=== PATIENT | male | born 1990 | race African-American/Black ===

== ENCOUNTER 2017-01-29 14:19 | Emergency (ER) | payer SELFPAY ==
--- NOTE | 2017-01-29 14:36 | ED Physician Documentation ---
Abdominal Pain - HISTORIAN Historian: patient - HPI Chief Complaint: Abdominal Pain Additonal Information: c/o lt upper abd - flank pain cough non prod onset 3d ago Onset: days ago (3) Duration: waxing, waning, other (rates 01/13---does not appear in sig pain) Timing: still present (bowels kidneys normal daily) Context: denies: out of country travel, bad food Severity: denies: moderate Quality: pain, other (cough) Associated Symptoms: denies: fever, chills, nausea, vomiting, loss of appetite Exacerbated by: movements Relieved by: nothing - ROS CONST: no problems GI/: none CVS/RESP: none, cough MS/SKIN/LYMPH: none NEURO/PSYCH: none - SOCIAL HX Smoking History: cigarettes Alcohol Use: none Drug Use: other - FAMILY HX Family History: no significant history - PAST HX Past History: none Ischemic Bowel Risk Factors: none Other History: none Surgeries/Procedures: none Home Medications: Ambulatory Orders Medication Instructions Recorded NK [NK] 12/19/14 Allergies/Adverse Reactions: Allergies Allergy/AdvReac Type Severity Reaction Status Date / Time No Known Allergies Allergy Verified 01/29/17 14:31 - VITAL SIGNS Vital Signs: Vital Signs Temp Pulse Resp BP Pulse Ox 98.6 F 80 16 128/58 98 01/29/17 14:20 01/29/17 14:20 01/29/17 14:20 01/29/17 14:20 01/29/17 14:20 - REVIEWED ASSESSMENTS Nursing Assessment Reviewed: Yes Vitals Reviewed: Yes ED Results Lab/Radiology - Lab Results Lab Results: Lab Results 01/29/17 01/29/17 14:55 14:55 WBC 5.80 K/ul K/ul (4.00-12.00) RBC 5.25 M/ul H M/ul (3.90-5.20) Hgb 15.6 g/dL g/dL (12.0-18.0) Hct 44.5 % % (37.0-53.0) MCV 84.9 fl fl (80.0-100.0) MCH 29.7 pg pg (28.0-34.0) MCHC 35.0 g/dL g/dL (30.0-36.0) RDW 12.9 % % (11.3-14.3) Plt Count 245 K/mm3 K/mm3 (130-400) Neut % (Auto) 52.6 % % (39.0-79.0) Lymph % (Auto) 34.1 % % (16.0-50.0) [place] % (Auto) 4.7 % % (0.0-11.0) Eos % (Auto) 5.3 % % (0.0-6.8) Baso % (Auto) 1.0 (0.0-1.5) Neut # (Auto) 3.1 # k/uL # k/uL (1.4-7.7) Lymph # (Auto) 2.0 # k/uL # k/uL (0.6-4.0) [place] # (Auto) 0.3 # k/uL # k/uL (0.0-0.9) Eos # (Auto) 0.3 # k/uL # k/uL (0.0-0.6) Baso # (Auto) 0.1 # k/uL # k/uL (0.0-0.5) Reactive Lymphs % 2.3 % % (0.0-5.0) Reactive Lymphs # 0.1 # k/uL # k/uL (0.0-0.8) Sodium 136 mmol/L L mmol/L (137-145) Potassium 3.9 mmol/L mmol/L (3.5-5.1) Chloride 101 mmol/L mmol/L (98-107) Carbon Dioxide 28 mmol/L mmol/L (22-30) BUN 11 mg/dL mg/dL (9-20) Creatinine 0.80 mg/dL mg/dL (0.66-1.25) Estimated Creat Clear 166 Est GFR ( Amer) > 60 (60 - ) Est GFR (Non-Af Amer) > 60 (60 - ) Glucose 84 mg/dL mg/dL (74-106) Calcium 8.9 mg/dL mg/dL (8.4-10.2) Total Bilirubin 0.4 mg/dL mg/dL (0.2-1.3) AST 17 U/L U/L (15-46) ALT 27 U/L U/L (13-69) Alkaline Phosphatase 76 U/L U/L (38-126) Total Protein 7.0 g/dL g/dL (6.3-8.2) Albumin 3.8 g/dL g/dL (3.5-5.0) - Radiology Radiology Impressions: cxr=wnl abd= xs gas feces - Orders Orders: ED Orders Category Date Time Status ABD SERIES PA CHEST [RAD] Stat Exams 01/29/17 Completed CBC/PLATELET/DIFF Routine Lab 01/29/17 14:55 Completed CMP Routine Lab 01/29/17 14:55 Completed URINALYSIS Routine Lab 01/29/17 Ordered EKG WITH COMPARISON Stat Ther 01/29/17 Ordered Abdominal Pain Physical Exam - Physical Exam General Appearance: mild distress, anxious EENT: eye inspection normal NECK: normal inspection, thyroid normal. No: lymphadenopathy RESPIRATORY: no resp distress, chest non-tender, wheezes, rales CVS: reg rate & rhythm, heart sounds normal ABDOMEN: soft, tenderness (lt lower rib cage - malcom abd min tenderness) SKIN: warm/dry, normal color. No: cyanosis, diaphoresis, jaundice EXTREMITIES: non-tender, normal range of motion NEURO: oriented X3, motor nml, sensation nml, mood/affect nml Vital Signs: Vital Signs Temp Pulse Resp BP Pulse Ox 98.6 F 80 16 128/58 98 01/29/17 14:20 01/29/17 14:20 01/29/17 14:20 01/29/17 14:20 01/29/17 14:20 Discharge Clincal Impression: un dx abd pain Referrals: Primary Doctor,No [Primary Care Provider] - 2 Days Comments: will give mg citrate-if not better after clean out will get CT ABD. disc w/ pt he is agreeable Condition: Good Disposition: 01 HOME, SELF-CARE Decision to Admit: NO Decision Time: 15:47
[2017-01-29 15:03] LABS: EOSINOPHILS % 5.3 % (0.0-6.8); MEAN CORPUSCULAR HEMOGLOBIN 29.7 pg (28.0-34.0); MEAN CORPUSCULAR VOLUME 84.9 fl (80.0-100.0); MONOCYTES % 4.7 % (0.0-11.0); NEUTROPHILS # 3.1 # k/uL (1.4-7.7)
[2017-01-29 15:10] LABS: eGFR (African) > 60; eGFR (Non-African) > 60
--- NOTE | 2017-01-29 15:22 | Diagnostic Imaging Report ---
ANGELO CUMMINGS [facility] [address] [facility].[address] [address] Report Submission Date: Jan 29, 2017 3:20:12 PM CDT Patient Study Name: ZOHREH RUBIN Date: Jan 29, 2017 3:00:26 PM CDT Modality Type: CR Gender: M Description: CHEST,ABDOMEN : 89 Institution: [facility] Physician: ANGELO CUMMINGS Examination: Obstruction series History: Abdominal discomfort Findings: 3 views obtained of the abdomen. Single view the chest without focal infiltrate or effusion. No abnormal dilation of the large or small bowel. Air and stool throughout the large bowel. 2 mm calcification inferior margin of the right kidney. No suspicious calcification projecting over the lower pelvic region. Osseous structures are appropriate for age. Impression: No acute pulmonary process. No obstruction. 2 mm calcification projecting over the inferior margin of the right kidney. Electronically signed on Jan 29, 2017 3:20:12 PM CDT by: Morales WELCH
[2017-01-29 16:04] VITALS: BP 115/78
== END 2017-01-29 15:46 | disposition home or self-care (01) ==
LOC: ED 14:19
DX: R10.9 Unspecified abdominal pain (principal)
CPT/HCPCS: 74022; 80053; 85025; 99283